=== PATIENT | female | born 1980 | race Caucasian/White ===

== ENCOUNTER 2019-03-27 13:45 | Outpatient (RCR) | payer OTHER | END 2019-06-11 | disposition home or self-care (01) | LOC: WSOH | DX: M65.4 Radial styloid tenosynovitis [de Quervain] (principal); X50.0XXA Overexertion from strenuous movement or load, initial encounter; Y92.513 Shop (commercial) as the place of occurrence of the external cause; Y99.0 Civilian activity done for income or pay; I10 Essential (primary) hypertension; E07.9 Disorder of thyroid, unspecified; Z90.710 Acquired absence of both cervix and uterus; Z91.040 Latex allergy status; Z79.899 Other long term (current) drug therapy | CPT/HCPCS: 24091; A6549 ==